=== PATIENT | male | born 1990 | race Two or more races ===

== ENCOUNTER 2017-02-02 06:50 | Day surgery (SDC) | payer OTHER ==
[2017-02-02 07:24] VITALS: BMI 22.9
[2017-02-02] MEDS ORDERED: Lactated Ringer's 1,000 ML IV ONE (07:39)
[2017-02-02] MEDS ORDERED: Propofol 10 mg/ml Inj (20 ML) ONE ×2 (09:33→10:11)
[2017-02-02] MEDS ORDERED: Midazolam 2 MG/2 ML VIAL ONE (09:35)
[2017-02-02] MEDS ORDERED: Succinylcholine 200 mg/10 ml Inj IV ONE (09:35)
[2017-02-02] MEDS ORDERED: ePHEDrine 50 mg/ml Inj ONE (09:35)
[2017-02-02] MEDS ORDERED: Bupivacaine 0.5% Inj(30mL) ONE (09:47)
[2017-02-02] MEDS ORDERED: Ropivacaine 0.5% 30ML IV ONE (09:49)
[2017-02-02] MEDS ORDERED: Sodium Chloride 0.9% 100 ML IV ONE (10:10)
[2017-02-02] MEDS ORDERED: Dexamethasone 4 mg/1 ml ONE (10:38)
[2017-02-02] MEDS: HYDROmorphone 0.5 mg/0.5 ml ISec IVP PRN ×3 (11:25→11:56)
[2017-02-02] MEDS ORDERED: DiphenhydrAMINE 50 mg/ml Inj IVP PRN (11:26)
[2017-02-02] MEDS ORDERED: Lactated Ringer's 1,000 ML IV SCH (11:26)
[2017-02-02] MEDS ORDERED: HYDROmorphone 0.5 mg/0.5 ml ISec ONE (11:31)
[2017-02-02 12:36] VITALS: RESP 18
[2017-02-02] MEDS ORDERED: Oxycodone/Acetaminophen 5/325 mg Tab PO PRN (13:00)
--- NOTE | 2017-02-02 13:14 | PCM.SURG1 ---
Surgeon's Initial Post Op Note - Surgeon's Notes Surgeon: Dr. Paredes Staff Research Associate: Melecio Quintanilla PGY2 Type of Anesthesia: General Endo Pre-Operative Diagnosis: R wrist pain Operative Findings: TFCC tear Post-Operative Diagnosis: R wrist pain Operation Performed: ARtheroscopy and debridement Specimen/Specimens Removed: TFCC tissue Estimated Blood Loss: EBL {In ML}: 5 Blood Products Given: N/A Drains Used: No Drains Post-Op Condition: Good Date of Surgery/Procedure: 02/02/17 Time of Surgery/Procedure: 11:00
[2017-02-02 18:10] VITALS: O2SAT 99
[2017-02-02 19:04] VITALS: BP 119/80; PULSE 81; TEMP 98
--- NOTE | 2017-02-08 08:33 | OP ---
PROCEDURE DATE: 02/02/2017 PREOPERATIVE DIAGNOSES: 1. Right wrist partial triangular fibrocartilage tear. 2. Right wrist synovitis. POSTOPERATIVE DIAGNOSES: 1. Right wrist triangular fibrocartilage complex partial tear. 2. Right wrist synovitis. PROCEDURE: 1. Right wrist arthroscopic TFCC debridement, 39622. 2. Right wrist arthroscopic partial synovectomy, 79069. SURGEON: Demian Paredes MD MANGLE OPERATOR GARMENTS: Truman Quintanilla, resident. TYPE OF ANESTHESIA: General. ESTIMATED BLOOD LOSS: Minimal. COMPLICATIONS: None. DRAINS: None. DISPOSITION: Stable to recovery room. INSTRUMENTS: None. INDICATIONS: This is a 26-year-old male who has the history of chronic ulnar sided wrist pain and has failed conservative therapy. Risk of surgery were explained in great detail. Risk included, but not limited to bleeding, infection, tendon, nerve, vessel injury, instability, chronic pain, potential need for additional surgery in the future. Patient understood the above risks and elected to proceed. Informed consent was obtained. DESCRIPTION OF PROCEDURE: The patient was taken to the operating room and placed supine on the operating room table. After adequate anesthesia and antibiotics were given, a well padded nonsteroidal tourniquet was placed on the patient's upper extremity. The extremity was then prepped and draped in the standard surgical fashion. The right upper extremity was then placed in the [facility] traction tower in the standard fashion. Finger drips were placed on the index and long finger. All bony prominence was well padded. Approximately 15 pounds of digital traction was applied. The proposed portals were marked out. This was a 3-4 portal as well as a 6R portal. An incision was made in the skin only and careful blunt dissection was performed down to the capsule. A 22-gauge needle was then used insufflate the radiocarpal joint with normal saline. A blunt trocar was then used to enter the radiocarpal joint and the camera was then placed inside the trocar and extended diagnostic arthroscopy was performed. Visualization of the distal radius articular service revealed a lunate and the scaphoid fossa to be in excellent condition. The articular surface of the lunate and scaphoid was also intact without any evidence of injury. The volar ligamentous structures were next visualized. The radioscaphocapitate ligament was intact without evidence of injury as well as the short and long radiolunate ligaments. The Ligament of Testut was visualized and was without any evidence or injury. Just dorsal to the scapholunate interosseus ligament was visualized. This was visualized from the volar aspect all the way to the dorsal aspect. There was no evidence of injury or attenuation. A significant synovitis was seen in the radial and ulnar gutters. Attention was directed ulnarly. The 6R portal was created in the similar fashion and a probe was placed into the radiocarpal joint. The scapholunate interosseus ligament was probed and confirmed to be intact. The ulnar attachment of the triangular fibrocartilage complex was probed and was intact. There was, however, a small radial tear. This was not amendable to repair. There was no peripheral detachment of the TFCC complex. Essential aspect was intact without any evidence of injury. There was, however, significant synovitis in the dorsal wrist as well as the ulnar and radial side of the wrist. The trampoline sign was seen. It was therefore determined that a synovectomy as well as arthroscopic TFCC debridement would be performed. A small joint shaver was placed inside the joint and a thorough synovectomy was performed of the radial and ulnar gutters as well as the dorsal aspect of the wrist. Once this was performed, the ArthroCare wand was placed in the joint and the synovitis was further debrided. The arthroscopic TFCC debridement was performed. The TFCC tear was identified and it was less than 1 cm involved, more radial and centrally located. The tear was then debrided to healthy issue without any evidence of impingement. The DRUJ was checked and was stable under stress test. The joint was then copiously irrigated. Instruments were withdrawn and the portal sites were closed with 4-0 Nylon interrupted sutures. The patient tolerated the procedure well and was placed in a long arm plaster splint. Follow up will be in 2 weeks. He was returned to recovery room in excellent condition. Demian Paredes MD MTDArthur
== END 2017-02-02 19:16 | disposition home or self-care (01) ==
LOC: H.OPSURG 06:50
PROVIDERS: ATTEND Orthopaedic Surgery
DX: S63.591A Other specified sprain of right wrist, initial encounter (principal); M65.88 Other synovitis and tenosynovitis, other site